=== PATIENT | female | born 1975 | race American Indian/Alaskan Native ===

== ENCOUNTER 2018-04-09 10:32 | Emergency (ER) | payer OTHER ==
[2018-04-09 11:20] LABS: Bacteria,Urine 1+ /HPF (Negative); Bilirubin,Urine NEG (Negative); Blood,Urine SM (Negative); Color,Urine Yellow (Yellow); Protein,Urine <15 mg/dL mg/dL (Negative); Urobilinogen,Urine < 2.0 mg/dL (<2.0)
[2018-04-09 11:35] LABS: Basophils # (Auto) 0.3 K/mm3 (0.0-0.1); Basophils % (Auto) 2.9 % (0.0-1.8); Eosinophils # (Auto) 0.1 K/mm3 (0.0-0.4); Eosinophils % (Auto) 1.2 % (0.0-4.3); Hematocrit 37.9 % (30.3-42.9); Hemoglobin 12.8 gm/dl (10.1-14.3); Lymphocytes # (Auto) 1.2 K/mm3 (1.2-5.4); Lymphocytes % (Auto) 13.9 % (13.4-35.0); Mean Corpuscular HGB Conc 34 % (30-34); Mean Corpuscular Hemoglobin 29 pg (28-32); Mean Corpuscular Volume 87 fl (79-97); Monocytes # (Auto) 0.8 K/mm3 (0.0-0.8); Monocytes % (Auto) 9.1 % (0.0-7.3); Platelet Count 381 K/mm3 (140-440); Red Blood Count 4.36 M/mm3 (3.65-5.03)
[2018-04-09 12:03] LABS: Alanine Aminotransferase 15 units/L (7-56); Albumin 3.7 g/dL (3.9-5); BUN/Creatinine Ratio 18; Blood Urea Nitrogen 11 mg/dL (7-17); Calcium 8.5 mg/dL (8.4-10.2); Hemolysis Index 1; Lipase 12 units/L (13-60)
--- NOTE | 2018-04-09 12:13 | Emergency Department Report ---
ED Abdominal Pain HPI - General Chief Complaint: Abdominal Pain Stated Complaint: ABDOMINAL PAIN Time Seen by Provider: 04/09/18 12:05 Source: patient, family Mode of arrival: Ambulatory Limitations: No Limitations - History of Present Illness Initial Comments: Patient reports abdominal pain 2-3 days with nausea and denies any vomiting. She said pain located all over her abdomen and feels crampy. Reports nausea without any vomiting. Pain is 10 out of 10. Pain is intermittent. No medication taken for pain. Patient has a primary care physician. She denies any vaginal bleeding or discharge or any concern for STDs. Denies any fever or chills or back pain. Denies any cough or chest pain. Nothing makes pain better and nothing makes it worse. She says she feels bloated. It was reported on triage note the patient was having pain to her right lower quadrant but patient says that her kids looked it up on global and thought that she had appendicitis and forced her to come to the hospital. Last bowel movement was yesterday. MD Complaint: abdominal pain Onset/Timin -: days(s) Location: diffuse Radiation: none Migration to: no migration Severity: severe Severity scale (0 -10): 10 Quality: cramping, fullness Consistency: intermittent Improves With: rest Worsens With: movement Associated Symptoms: nausea. denies: vomiting, diarrhea, fever, chills, constipation, dysuria, hematemesis, hematochezia, melena, hematuria, anorexia, syncope Treatments Prior to Arrival: other (none) - Related Data Previous Rx's Medication Instructions Recorded Last Taken Type Bisacodyl [Dulcolax] 10 mg PO DAILY PRN #4 tab 04/09/18 Unknown Rx Naproxen 500 mg PO Q12H PRN #12 tablet 04/09/18 Unknown Rx Sulfamethoxazole/Trimethoprim 1 each PO BID 3 Days #6 tablet 04/09/18 Unknown Rx [Bactrim DS TAB] Allergies Allergy/AdvReac Type Severity Reaction Status Date / Time iodine Allergy Swelling Verified 04/09/18 10:37 Penicillins Allergy Hives Verified 04/09/18 10:37 shellfish derived Allergy Swelling Verified 04/09/18 10:37 ED Review of Systems ROS: Stated complaint: ABDOMINAL PAIN Other details as noted in HPI Comment: All other systems reviewed and negative Constitutional: denies: chills, fever Eyes: denies: eye pain, eye discharge, vision change ENT: denies: ear pain, throat pain Respiratory: denies: cough, shortness of breath, SOB with exertion, SOB at rest , stridor, wheezing Cardiovascular: denies: chest pain, palpitations, dyspnea on exertion, edema, syncope, paroxysmal nocturnal dyspnea Gastrointestinal: denies: abdominal pain, nausea, vomiting, constipation, hematemesis, melena, hematochezia Genitourinary: denies: urgency, dysuria, frequency, hematuria, discharge, abnormal menses, dyspareunia Musculoskeletal: denies: back pain, joint swelling, arthralgia, myalgia Skin: denies: rash, lesions Neurological: denies: headache, weakness, paresthesias ED Past Medical Hx - Past Medical History Previous Medical History?: Yes - Surgical History Past Surgical History?: No - Family History Family history: hypertension - Social History Smoking Status: Never Smoker Substance Use Type: None Other Social History: Lives with children and works - Medications Home Medications: Home Medications Medication Instructions Recorded Confirmed Last Taken Type Bisacodyl [Dulcolax] 10 mg PO DAILY PRN #4 tab 04/09/18 Unknown Rx Naproxen 500 mg PO Q12H PRN #12 tablet 04/09/18 Unknown Rx Sulfamethoxazole/Trimethoprim 1 each PO BID 3 Days #6 tablet 04/09/18 Unknown Rx [Bactrim DS TAB] ED Physical Exam - General Limitations: No Limitations General appearance: alert, in no apparent distress - Head Head exam: Present: atraumatic, normocephalic, normal inspection - Eye Eye exam: Present: normal appearance, PERRL, EOMI Pupils: Present: normal accommodation - ENT ENT exam: Present: normal exam, normal orophraynx, mucous membranes moist - Neck Neck exam: Present: normal inspection, full ROM, other (no C-spine tenderness). Absent: tenderness, lymphadenopathy - Respiratory Respiratory exam: Present: normal lung sounds bilaterally. Absent: respiratory distress, chest wall tenderness, accessory muscle use - Cardiovascular Cardiovascular Exam: Present: regular rate, normal rhythm, normal heart sounds. Absent: systolic murmur, diastolic murmur - GI/Abdominal GI/Abdominal exam: Present: soft, distended, normal bowel sounds. Absent: tenderness, guarding, rebound, rigid, organomegaly, mass, bruit, pulsatile mass , hernia - Extremities Exam Extremities exam: Present: normal inspection, full ROM, normal capillary refill , other. Absent: tenderness, pedal edema, joint swelling, calf tenderness - Back Exam Back exam: Present: normal inspection, full ROM. Absent: tenderness, CVA tenderness (R), CVA tenderness (L), muscle spasm, paraspinal tenderness, vertebral tenderness, rash noted - Neurological Exam Neurological exam: Present: alert, oriented X3, normal gait - Psychiatric Psychiatric exam: Present: normal affect, normal mood - Skin Skin exam: Present: warm, dry, intact, normal color. Absent: rash ED Course Vital Signs 04/09/18 04/09/18 04/09/18 10:37 12:50 14:59 Temperature 99.2 F Pulse Rate 93 H 62 Respiratory 18 18 16 Rate Blood Pressure 142/76 Blood Pressure 117/77 [Left] O2 Sat by Pulse 98 100 Oximetry - Reevaluation(s) Reevaluation #1: 04/09/18 12:[address] scan of abdomen and pelvis without contrast due to shellfish allergies. Reevaluation #2: 04/09/18 14:28 Patient is stable, she received Zofran IV and morphine 8 mg IV for relief of nausea and pain. She was given 1 L of normal saline. CT of the abdomen and pelvis resulted. ED Medical Decision Making - Lab Data Result diagrams: 04/09/18 11:08 04/09/18 11:08 Lab Results 04/09/18 04/09/18 04/09/18 Range/Units 10:57 11:08 11:08 WBC 9.0 (4.5-11.0) K/mm3 RBC 4.36 (3.65-5.03) M/mm3 Hgb 12.8 (10.1-14.3) gm/dl Hct 37.9 (30.3-42.9) % MCV 87 (79-97) fl MCH 29 (28-32) pg MCHC 34 (30-34) % RDW 14.0 (13.2-15.2) % Plt Count 381 (140-440) K/mm3 Lymph % (Auto) 13.9 (13.4-35.0) % [place] % (Auto) 9.1 H (0.0-7.3) % Eos % (Auto) 1.2 (0.0-4.3) % Baso % (Auto) 2.9 H (0.0-1.8) % Lymph # 1.2 (1.2-5.4) K/mm3 [place] # 0.8 (0.0-0.8) K/mm3 Eos # 0.1 (0.0-0.4) K/mm3 Baso # 0.3 H (0.0-0.1) K/mm3 Seg Neutrophils % 72.9 H (40.0-70.0) % Seg Neutrophils # 6.5 (1.8-7.7) K/mm3 Sodium 135 L (137-145) mmol/L Potassium 3.9 (3.6-5.0) mmol/L Chloride 102.5 (98-107) mmol/L Carbon Dioxide 22 (22-30) mmol/L Anion Gap 14 mmol/L BUN 11 (7-17) mg/dL Creatinine 0.6 L (0.7-1.2) mg/dL Estimated GFR > 60 ml/min BUN/Creatinine Ratio 18 % Glucose 98 (65-100) mg/dL Calcium 8.5 (8.4-10.2) mg/dL Total Bilirubin 0.50 (0.1-1.2) mg/dL AST 23 (5-40) units/L ALT 15 (7-56) units/L Alkaline Phosphatase 64 (35-129) units/L Total Protein 7.1 (6.3-8.2) g/dL Albumin 3.7 L (3.9-5) g/dL Albumin/Globulin Ratio 1.1 % Lipase 12 L (13-60) units/L HCG, Qual (Negative) Urine Color Yellow (Yellow) Urine Turbidity Clear (Clear) Urine pH 8.0 H (5.0-7.0) Ur Specific [place] 1.014 (1.003-1.030) Urine Protein <15 mg/dl (Negative) mg/dL Urine Glucose (UA) Neg (Negative) mg/dL Urine Ketones Neg (Negative) mg/dL Urine Blood Sm (Negative) Urine Nitrite Neg (Negative) Urine Bilirubin Neg (Negative) Urine Urobilinogen < 2.0 (<2.0) mg/dL Ur Leukocyte Esterase Tr (Negative) Urine WBC (Auto) 4.0 (0.0-6.0) /HPF Urine RBC (Auto) 4.0 (0.0-6.0) /HPF U Epithel Cells (Auto) 2.0 (0-13.0) /HPF Urine Bacteria (Auto) 1+ (Negative) /HPF 04/09/18 Range/Units 11:08 WBC (4.5-11.0) K/mm3 RBC (3.65-5.03) M/mm3 Hgb (10.1-14.3) gm/dl Hct (30.3-42.9) % MCV (79-97) fl MCH (28-32) pg MCHC (30-34) % RDW (13.2-15.2) % Plt Count (140-440) K/mm3 Lymph % (Auto) (13.4-35.0) % [place] % (Auto) (0.0-7.3) % Eos % (Auto) (0.0-4.3) % Baso % (Auto) (0.0-1.8) % Lymph # (1.2-5.4) K/mm3 [place] # (0.0-0.8) K/mm3 Eos # (0.0-0.4) K/mm3 Baso # (0.0-0.1) K/mm3 Seg Neutrophils % (40.0-70.0) % Seg Neutrophils # (1.8-7.7) K/mm3 Sodium (137-145) mmol/L Potassium (3.6-5.0) mmol/L Chloride (98-107) mmol/L Carbon Dioxide (22-30) mmol/L Anion Gap mmol/L BUN (7-17) mg/dL Creatinine (0.7-1.2) mg/dL Estimated GFR ml/min BUN/Creatinine Ratio % Glucose (65-100) mg/dL Calcium (8.4-10.2) mg/dL Total Bilirubin (0.1-1.2) mg/dL AST (5-40) units/L ALT (7-56) units/L Alkaline Phosphatase (35-129) units/L Total Protein (6.3-8.2) g/dL Albumin (3.9-5) g/dL Albumin/Globulin Ratio % Lipase (13-60) units/L HCG, Qual Negative (Negative) Urine Color (Yellow) Urine Turbidity (Clear) Urine pH (5.0-7.0) Ur Specific [place] (1.003-1.030) Urine Protein (Negative) mg/dL Urine Glucose (UA) (Negative) mg/dL Urine Ketones (Negative) mg/dL Urine Blood (Negative) Urine Nitrite (Negative) Urine Bilirubin (Negative) Urine Urobilinogen (<2.0) mg/dL Ur Leukocyte Esterase (Negative) Urine WBC (Auto) (0.0-6.0) /HPF Urine RBC (Auto) (0.0-6.0) /HPF U Epithel Cells (Auto) (0-13.0) /HPF Urine Bacteria (Auto) (Negative) /HPF Urine culture pending - Radiology Data Radiology results: report reviewed CT scan of the abdomen and pelvis without contrast. Please see below for results Patient: GRISELDA RICHARD MR#: [id number] : 1975 Acct:[id number] Age/Sex: 42 / F ADM Date: 04/09/18 Loc: ED Attending Dr: Ordering Physician: KANIKA BAHENA Date of Service: 04/09/18 Procedure(s): CT abdomen pelvis wo con Accession Number(s): [id number] cc: KANIKA BAHENA CT scan of abdomen and pelvis without IV contrast: History: Abdominal pain. Findings: Normal lung bases. No pleural pericardial effusion. Normal liver spleen pancreas and gallbladder. Normal intravenous kidneys and bladder. No free intraperitoneal fluid or. No evidence of adenopathy. Normal appendix. No evidence of diverticulitis. Gaseous: Moderate amount of stool in colon. No bowel distention or wall thickening. Impression: Gaseous colon with moderate volume stool in colon. Transcribed By: PTP Dictated By: LAMBERTO COSTA MD Electronically Authenticated By: LAMBERTO COSTA MD Signed Date/Time: 04/09/18 1308 DD/ 1306 TD/TT: 04/09/18 1308 - Medical Decision Making ED course: Patient presents to emergency room complaining of abdominal pain. Physical findings for tenderness palpated to abdomen without any guarding or rebound. CT scan of the abdomen and pelvis done without contrast as patient has allergic reaction to shellfish which cause swelling. CT findings shows patient with normal appendix, no inflammatory process and colon, normal exam except patient with moderate stool in colon. Please refer to CT scan report for details. Laboratory findings with normal CBC and chemistry, negative and patient with positive trace leukocyte Estrace, 1+ bacteria and small amount of blood with elevation in pH of 8.0.. She reports that she has gone to her primary care physician physical exam on several occasion and she told her that she had a urinary tract infection but she is not having any symptoms so this although she was prescribed antibiotic she did not take the antibiotic. She denies any symptoms of urinary burning, frequency or urgency in emergency room. Abdominal pain is new and she is concerned for appendicitis because she said her children went on the Internet and thought that she had problems with her appendix and she is here to be evaluated per patient. I discussed the patient her CT scan results, diagnosis and need to follow-up. I also discussed with her that I'll put her on antibiotic for 3 days for urinary tract infection and she needs to follow up with her primary care physician on the fourth day for reevaluation of her urine and also she needs to follow-up with supervisor force adjustment for constipation. Discharge instruction given on increasing fiber in diet, constipation and UTI. She voiced understanding and and patient was treated in emergency room with 1 L of IV fluid, Zofran 8 mg IV and morphine 4 mg IV for pain and patient has no nausea and pain at present. She is tolerating nothing by mouth liquids well. Patient discharged from ED with family in stable with prescription for Bactrim DS, bisacodyl and naproxen Critical care attestation.: If time is entered above; I have spent that time in minutes in the direct care of this critically ill patient, excluding procedure time. ED Disposition Clinical Impression: Abdominal pain Qualifiers: Abdominal location: generalized Qualified Code(s): R10.84 - Generalized abdominal pain Constipation Qualifiers: Constipation type: other constipation type Qualified Code(s): K59.09 - Other constipation UTI (urinary tract infection) Qualifiers: Urinary tract infection type: acute cystitis Hematuria presence: with hematuria Qualified Code(s): N30.01 - Acute cystitis with hematuria Disposition: TO HOME OR SELFCARE Is pt being admited?: No Does the pt Need Aspirin: No Condition: Stable Instructions: Constipation (ED), High Fiber Diet (ED), Abdominal Pain (ED), Urinary Tract Infection in Women (ED) Additional Instructions: Please see discharge instructions on high fiber diet Follow-up with supervisor force adjustment for constipation Follow up with primary care physician for repeat urinalysis after completion of antibiotic. Increase fluid intake to 2-3 L of water/cranberry juice daily. Prescriptions: Bisacodyl [Dulcolax] 10 mg PO DAILY PRN #4 tab PRN Reason: Constipation Naproxen 500 mg PO Q12H PRN #12 tablet PRN Reason: abdominal cramping Sulfamethoxazole/Trimethoprim [Bactrim DS TAB] 1 each PO BID 3 Days #6 tablet Referrals: PRIMARY CARE, [Primary Care Provider] - 04/13/18 [facility] [Provider Group] - 04/13/18 Forms: Accompanied Note, Work/School Release Form(ED)
[2018-04-09] MEDS ORDERED: ZOFRAN IV ONE (12:26)
[2018-04-09] MEDS ORDERED: MORPHINE IM ONE (12:26)
[2018-04-09] MEDS ORDERED: NACL 0.9% 1000 ML 1,000 ML IV ONE (12:44)
--- NOTE | 2018-04-09 13:29 | Cat Scan Report ---
CT scan of abdomen and pelvis without IV contrast: History: Abdominal pain. Findings: Normal lung bases. No pleural pericardial effusion. Normal liver spleen pancreas and gallbladder. Normal intravenous kidneys and bladder. No free intraperitoneal fluid or. No evidence of adenopathy. Normal appendix. No evidence of diverticulitis. Gaseous: Moderate amount of stool in colon. No bowel distention or wall thickening. Impression: Gaseous colon with moderate volume stool in colon.
[2018-04-09 15:01] VITALS: BP 117/77
== END 2018-04-09 14:59 | disposition home or self-care (01) ==
LOC: ED 10:32
DX: N30.01 Acute cystitis with hematuria (principal); K59.09 Other constipation; Z88.0 Allergy status to penicillin; Z91.013 Allergy to seafood; Z91.041 Radiographic dye allergy status
CPT/HCPCS: 36415; 74176; 80053; 81001; 83690; 84703; 85025; 96361; 96372; 96374; 99284; J2270; J2405; J7030